=== PATIENT | male | born 1945 | race Two or more races ===

== ENCOUNTER → 2017-10-24 | Outpatient (CLI) | payer MEDICARE, BC | END | disposition home or self-care (01) | LOC: LABWHC1 14:31 | PROVIDERS: ATTEND Otolaryngology | DX: K11.9 Disease of salivary gland, unspecified (principal) | CPT/HCPCS: 36415; 82565 ==

== ENCOUNTER → 2017-10-25 | Outpatient (CLI) | payer MEDICARE, BC ==
--- NOTE | 2017-10-26 09:16 | MR ---
Neck MRI with and without contrast HISTORY: Parotid mass Multiplanar multisequence and postcontrast images obtained through the neck following 9 cc Gadavist I V Correlation to ultrasound biopsy 09/05/2017 Within the left parotid gland at the site of the patient's palpable abnormality there is a cystic-tea earing focus on T2-weighted sequences measuring approximately 13 mm x 11 mm x 17 mm which shows a mul tilocular appearance. There is close proximity to overlying vein. Some local mass effect is suspected on vascular structure. No evident mass within the submandibular glands or right parotid gland. Some enhancement suspected following contrast administration. The orbits show an unremarkable appearance. There is no evident adenopathy. Normal vascular flow void s are present. Degenerative disc changes noted incidentally in the spine. Mucosal disease noted withi n the maxillary sinuses. IMPRESSION: Left parotid mass as described, consider oncocytoma, Warthin tumor, pleomorphic adenoma, follow-up.
== END | disposition home or self-care (01) ==
LOC: RADMRIMAIN 08:45
PROVIDERS: ATTEND Otolaryngology
DX: K11.8 Other diseases of salivary glands (principal)
CPT/HCPCS: 70543; A9581

== ENCOUNTER 2019-05-21 14:19 | Emergency (ER) | payer MEDICARE, BC ==
[2019-05-21 14:41] VITALS: BP 162/93; PULSE 69; RESP 18; TEMP 97.8
--- NOTE | 2019-05-21 15:52 | XR ---
EXAMINATION TYPE: XR KUB DATE OF EXAM: 05/21/2019 COMPARISON: NONE HISTORY: Pain TECHNIQUE: Single supine KUB image of the abdomen is obtained FINDINGS: Small bowel demonstrates no evidence for dilatation or air fluid levels. Gas and fecal material is seen in non-distended colon. No convincing evidence for pneumoperitoneum. There is evidence of cholelithiasis. Vascular calcifications noted. Multiple phleboliths pelvic basin . The lung bases are clear. The osseous structures are intact. IMPRESSION: 1. Overall nonobstructive bowel gas pattern.
[2019-05-21 15:55] LABS: Basophils % (A) 0 %; Eosinophils # (A) 0.1 k/uL (0-0.7); Eosinophils % (A) 1 %; HCT 43.1 % (39.0-53.0); HGB 14.6 gm/dL (13.0-17.5); Lymphocytes # (A) 1.3 k/uL (1.0-4.8); Lymphocytes % (A) 9 %; MCH 30.2 pg (25.0-35.0); MCHC 33.8 g/dL (31.0-37.0); MCV 89.2 fL (80.0-100.0); Mean Platelet Volume 7.2; Monocytes # (A) 0.9 k/uL (0-1.0); Monocytes % (A) 6 %; Neutrophils # (A) 11.4 k/uL (1.3-7.7); Neutrophils % (A) 82 %; Platelet Count 208 k/uL (150-450); RBC 4.83 m/uL (4.30-5.90); RDW 13.4 % (11.5-15.5); WBC 13.8 k/uL (3.8-10.6)
[2019-05-21 16:05] LABS: Appearance,Urine Clear (Clear); Bilirubin,Urine Negative (Negative); Blood,Urine Moderate (Negative); Color,Urine Yellow; Glucose,Urine (UA) Negative (Negative); Ketones,Urine Trace (Negative); Leukocyte Esterase,Urine Negative (Negative); Mucus,Urine Rare /hpf; Nitrite,Urine Negative (Negative); Protein,Urine Trace (Negative); RBC,Urine 49 /hpf (0-5); Specific Gravity,Urine 1.021 (1.001-1.035); Urobilinogen,Urine <2.0 mg/dL (<2.0); WBC,Urine 1 /hpf (0-5)
--- NOTE | 2019-05-21 16:11 | ED ---
Back Pain HPI - General Chief Complaint: Back Pain/Injury Stated Complaint: Lower Back Pain Time Seen by Provider: 05/21/19 14:45 Source: patient Limitations: no limitations - History of Present Illness Initial Comments: Patient is 73-year-old male with history of cholelithiasis and nephrolithiasis is presenting to the emergency Department with chief complaint of abdominal back pain. Patient states that he developed right-sided abdominal pain this morning after he woke up and it has since traveled to the right flank and right lumbar paraspinal region. Patient reports nausea but no vomiting or diarrhea. Patient reports the pain is not related to oral fluid intake. Patient denies any fevers, night sweats or chills. Patient reports the pain is a 4 and constant. Patient states the pain is not exacerbated with any specific anatomical positions or with palpation. Patient denies taking any medication to alleviate the symptoms. Patient denies abdominal bloating. Patient denies hematuria, hematochezia or melena. Patient denies penile discharge, scrotal swelling or tenderness. - Related Data Home Medications Medication Instructions Recorded Confirmed Aspirin [Adult Low Dose Aspirin EC] 81 mg PO DAILY 08/28/17 09/05/17 Simvastatin 40 mg PO HS 08/28/17 09/05/17 metFORMIN HCL [Glucophage] 850 mg PO BID 08/28/17 09/05/17 sitaGLIPtin [Januvia] 100 mg PO DAILY 08/28/17 09/05/17 Previous Rx's Medication Instructions Recorded Tamsulosin [Flomax] 0.4 mg PO DAILY #7 cap 05/21/19 Allergies Allergy/AdvReac Type Severity Reaction Status Date / Time No Known Allergies Allergy Verified 09/05/17 09:23 Review of Systems ROS Statement: Those systems with pertinent positive or pertinent negative responses have been documented in the HPI. ROS Other: All systems not noted in ROS Statement are negative. Past Medical History Past Medical History: Diabetes Mellitus, Hyperlipidemia History of Any Multi-Drug Resistant Organisms: None Reported Past Surgical History: Hernia Repair Additional Past Surgical History / Comment(s): 2 times hernia repair, vasectomy Past Anesthesia/Blood Transfusion Reactions: No Reported Reaction Past Psychological History: No Psychological Hx Reported Smoking Status: Former smoker Past Alcohol Use History: None Reported Past Drug Use History: None Reported - Past Family History Mother Family Medical History: Diabetes Mellitus Additional Family Medical History / Comment(s): Type 1 General Exam Limitations: no limitations General appearance: alert, in no apparent distress Head exam: Present: atraumatic, normocephalic, normal inspection Eye exam: Present: normal appearance, PERRL, EOMI Pupils: Present: normal accommodation ENT exam: Present: normal exam, mucous membranes moist, normal external ear exam Neck exam: Present: normal inspection, full ROM Respiratory exam: Present: normal lung sounds bilaterally Cardiovascular Exam: Present: regular rate, normal rhythm, normal heart sounds GI/Abdominal exam: Present: soft, normal bowel sounds, other (Negative Rovsing, negative psoas, negative obturator, negative McBurney point tenderness, negative Meraz sign.). Absent: tenderness, guarding, mass Extremities exam: Present: normal inspection, full ROM, other (+2 dorsalis pedis and posterior tibialis bilaterally.) Back exam: Present: normal inspection, full ROM, CVA tenderness (R) (Mild) Neurological exam: Present: alert, oriented X3 Psychiatric exam: Present: normal affect, normal mood Skin exam: Present: warm, intact, normal color Course Vital Signs 05/21/19 14:37 Temperature 97.8 F Pulse Rate 69 Respiratory 18 Rate Blood Pressure 162/93 O2 Sat by Pulse 98 Oximetry Medical Decision Making - Medical Decision Making Patient is 73-year-old male presenting to emergency Department with a chief complaint of abdominal pain. Patient reports the pain started near the right side of the abdomen and has since progressed to the right flank region. UA is indicative of hematuria. CBC is showing mild leukocytosis. CMP does not indicate elevation in liver enzymes. CT of abdomen and pelvis is indicative of small obstructing calculus in the distal right ureter with the right side hydronephrosis and hydroureter. Arthrosclerotic vascular disease also noted. Cholelithiasis noted with liver lesions consistent with hemangiomata. Patient will be given a Tylenol 3 starter pack and Flomax. Patient vised alternate between Tylenol and ibuprofen for pain control. Patient asked to follow-up with urology. Strict return parameters were thoroughly discussed the patient is understanding and agreeable. Case discussed with physician. - Lab Data Result diagrams: 05/21/19 15:40 05/21/19 15:40 Lab Results 05/21/19 05/21/19 05/21/19 Range/Units 15:40 15:40 15:40 WBC 13.8 H (3.8-10.6) k/uL RBC 4.83 (4.30-5.90) m/uL Hgb 14.6 (13.0-17.5) gm/dL Hct 43.1 (39.0-53.0) % MCV 89.2 (80.0-100.0) fL MCH 30.2 (25.0-35.0) pg MCHC 33.8 (31.0-37.0) g/dL RDW 13.4 (11.5-15.5) % Plt Count 208 (150-450) k/uL Neutrophils % 82 % Lymphocytes % 9 % Monocytes % 6 % Eosinophils % 1 % Basophils % 0 % Neutrophils # 11.4 H (1.3-7.7) k/uL Lymphocytes # 1.3 (1.0-4.8) k/uL Monocytes # 0.9 (0-1.0) k/uL Eosinophils # 0.1 (0-0.7) k/uL Basophils # 0.0 (0-0.2) k/uL Sodium 138 (137-145) mmol/L Potassium 5.2 H (3.5-5.1) mmol/L Chloride 101 (98-107) mmol/L Carbon Dioxide 26 (22-30) mmol/L Anion Gap 11 mmol/L BUN 24 H (9-20) mg/dL Creatinine 1.38 H (0.66-1.25) mg/dL Est GFR (CKD-EPI)AfAm 58 (>60 ml/min/1.73 sqM) Est GFR (CKD-EPI)NonAf 50 (>60 ml/min/1.73 sqM) Glucose 138 H (74-99) mg/dL Calcium 10.3 H (8.4-10.2) mg/dL Total Bilirubin 0.7 (0.2-1.3) mg/dL AST 23 (17-59) U/L ALT 28 (21-72) U/L Alkaline Phosphatase 75 (38-126) U/L Total Protein 7.5 (6.3-8.2) g/dL Albumin 4.5 (3.5-5.0) g/dL Amylase 58 (30-110) U/L Lipase 83 (23-300) U/L Urine Color Yellow Urine Appearance Clear (Clear) Urine pH 5.0 (5.0-8.0) Ur Specific [place] 1.021 (1.001-1.035) Urine Protein Trace H (Negative) Urine Glucose (UA) Negative (Negative) Urine Ketones Trace H (Negative) Urine Blood Moderate H (Negative) Urine Nitrite Negative (Negative) Urine Bilirubin Negative (Negative) Urine Urobilinogen <2.0 (<2.0) mg/dL Ur Leukocyte Esterase Negative (Negative) Urine RBC 49 H (0-5) /hpf Urine WBC 1 (0-5) /hpf Urine Mucus Rare H (None) /hpf Disposition Clinical Impression: Kidney stone on right side Disposition: HOME SELF-CARE Condition: Stable Instructions (If sedation given, give patient instructions): Kidney Stones (ED) Additional Instructions: Alternate between Tylenol and ibuprofen for pain control. Please see prescribe medication as directed. Please follow up with urology. Patient to emergency department if symptoms worsen. Is patient prescribed a controlled substance at d/c from ED?: No Referrals: Dick Grajeda MD [Primary Care Provider] - 1-2 days Pal Dawkins MD [STAFF PHYSICIAN] - 1-2 days Time of Disposition: 17:38
[2019-05-21 16:36] LABS: Albumin 4.5 g/dL (3.5-5.0); Calcium 10.3 mg/dL (8.4-10.2); Potassium 5.2 mmol/L (3.5-5.1); Total Bilirubin 0.7 mg/dL (0.2-1.3); Total Protein 7.5 g/dL (6.3-8.2)
--- NOTE | 2019-05-21 17:19 | CT ---
EXAMINATION TYPE: CT abdomen pelvis w con DATE OF EXAM: 05/21/2019 COMPARISON: None HISTORY: Right sided flank pain with nausea CT DLP: 1055.1 mGycm Automated exposure control for dose reduction was used. TECHNIQUE: Helical acquisition of images was performed from the lung bases through the pelvis. CONTRAST: Performed without Oral Contrast and with IV Contrast, patient injected with 100 mL of Isovue 300. FINDINGS: There is subsegmental atelectasis at the posterior lung bases. Heart size is normal. There is no robe cardial effusion. There is no pleural effusion. There is 3.2 cm irregular low-density mass with nodular peripheral enhancement in the lateral right l obe of the liver. There is a similar 3.4 x 5.7 cm lesion in the posterior superior right lobe of the liver. These are consistent with hemangiomata. The bile ducts are not dilated. There are multiple cristi cified gallstones. Spleen appears normal. There is no pancreatic mass. There is atherosclerotic vascu lar calcification. There is oval-shaped 13 cm low-density left adrenal mass. Kidneys have normal size. There is right-si ded hydronephrosis and hydroureter. There is 5 mm calculus at the right ureterovesical junction. Ther e is delayed right-sided pyelogram. Left kidney shows no sign of mass or obstruction. There is no ret roperitoneal adenopathy. There is no evidence of thickened appendix. There is a few millimeter anterior subluxation of L4 in r elation L5. This is a mild degenerative spondylolisthesis. There is no compression fracture. There is hypertrophic degenerative disc changes at L3-4 and L5-S1. The posterior elements are intact. There i s some osteoarthritis in the left hip joint with acetabular mild spurring and degenerative cyst forma tion. There is no mesenteric edema. There is no evidence of a bowel obstruction. I see no intestinal wall t hickening. There are scattered sigmoid diverticula. IMPRESSION: SMALL OBSTRUCTING CALCULUS IN THE DISTAL RIGHT URETER WITH RIGHT SIDE HYDRONEPHROSIS AND HYDROURETER. ATHEROSCLEROTIC VASCULAR DISEASE. CHOLELITHIASIS. LIVER LESIONS CONSISTENT WITH HEMANGIOMATA.
[2019-05-21] MEDS ORDERED: ACET/COD 300 MG/30 MG STARTER PACK 6 TAB BTL PO STA (17:44)
== END 2019-05-21 17:48 | disposition home or self-care (01) ==
LOC: EC 14:19
DX: N13.2 Hydronephrosis with renal and ureteral calculous obstruction (principal); K80.20 Calculus of gallbladder without cholecystitis without obstruction; I70.90 Unspecified atherosclerosis; D72.829 Elevated white blood cell count, unspecified; K76.9 Liver disease, unspecified; E11.9 Type 2 diabetes mellitus without complications; E78.5 Hyperlipidemia, unspecified; Z79.82 Long term (current) use of aspirin; Z79.84 Long term (current) use of oral hypoglycemic drugs; Z79.899 Other long term (current) drug therapy; Z87.891 Personal history of nicotine dependence; Z98.890 Other specified postprocedural states
CPT/HCPCS: 36415; 80053; 82150; 83690; 85025; 81001; 74018; 74177; 99284; Q9967

== ENCOUNTER → 2019-06-06 | Outpatient (CLI) | payer MEDICARE, BC ==
--- NOTE | 2019-06-09 08:59 | CT ---
EXAMINATION TYPE: CT abdomen wo/w con, adrenal mass protocol DATE OF EXAM: 06/06/2019 COMPARISON: 05/21/2019 HISTORY: 73-year-old male recently passed stone. Evaluate for adrenal mass. Adrenal protocol. TECHNIQUE: Contiguous axial scanning of the abdomen and pelvis before and after administration of 80 ml Isovue 300 IV contrast. Long delayed images were also acquired. Coronal/sagittal reconstructions p erformed. CT DLP: 1184 mGycm Automated exposure control for dose reduction was used. FINDINGS: Heart normal size with trace anterior pericardial fluid. Coronary vessel calcifications are present. Strandy bibasilar dependent areas of atelectasis. No pleural effusion. Small hiatal hernia. Hemangiomas redemonstrated within the right liver lobe measuring 6.7 cm posteriorly and 3.4 cm anteri dell. There is peripheral nodular enhancement with fill-in on the delayed images. Portal venous system is patent. No biliary ductal dilatation. Multiple gallstones are present measuring up to 1.6 cm. No abnormal gallbladder distention. Right adrenal gland, left kidney, spleen, and pancreas appear within normal limits. Cortical defect along the posterior upper pole right kidney suggests sequela of prior vascular or inf ectious insult. Retroaortic left renal vein. Symmetric uptake and excretion of contrast from both kidneys. Resolution of the previous mild hydronephrosis on the right. Moderate atherosclerotic calcifications abdominal aorta and iliac arteries. Scattered nonenlarged mesenteric lymph nodes are present measuring up to 6 mm. Moderate stool burden. No pericolonic inflammatory change. No dilated small bowel, free fluid, or cookie e air. Redemonstrated 1.8 cm nodule of the left adrenal gland along the medial limb. Noncontrast attenuation: -7 Hounsfield units. Early contrast attenuation: 19 Hounsfield units Late contrast enhancement: 0 Hounsfield units. Bones: Facet arthropathy lower lumbar spine. Endplate spondylosis visualized lower thoracic spine. Gr jemima 1 anterolisthesis L4-L5 and advanced degenerative disc disease L5-S1. IMPRESSION: 1. DENSITY AND ENHANCEMENT CHARACTERISTICS OF THE 1.8 CM LEFT ADRENAL NODULE COMPATIBLE WITH A BENIGN , LIPID RICH ADRENAL ADENOMA. 2. SMALL HIATAL HERNIA, HEPATIC HEMANGIOMAS MEASURING UP TO 6.7 CM, CHOLELITHIASIS, AND DEGENERATIVE CHANGES IN THE LOWER LUMBAR SPINE MENTIONED ABOVE.
== END | disposition home or self-care (01) ==
LOC: RADCTMAIN 13:54
PROVIDERS: ATTEND Urology
DX: K44.9 Diaphragmatic hernia without obstruction or gangrene (principal); D18.03 Hemangioma of intra-abdominal structures; K80.20 Calculus of gallbladder without cholecystitis without obstruction; E27.9 Disorder of adrenal gland, unspecified; R19.00 Intra-abdominal and pelvic swelling, mass and lump, unspecified site
CPT/HCPCS: 82565; 84520; 74170; 36415; Q9967

== ENCOUNTER 2022-07-06 19:21 | Emergency (ER) | payer MEDICARE ==
[2022-07-06 19:58] VITALS: BP 155/103; PULSE 85; RESP 16; TEMP 98
--- NOTE | 2022-07-06 20:06 | ED ---
ENT HPI - General Chief complaint: ENT Stated complaint: Hearing aid issues Time Seen by Provider: 07/06/22 20:01 Source: patient, RN notes reviewed Mode of arrival: ambulatory Limitations: no limitations - History of Present Illness Initial comments: This is a 76-year-old male who presents to the emergency department after getting a hearing aid stuck in his right ear. States that this happened at home earlier today, and he is unable to get it out on his own. Denies any fevers, chills, sore throat, cough, dyspnea, chest pain, palpitations , abdominal pain, nausea, vomiting, diarrhea, back pain, or headaches. MD complaint: other (hearing aid stuck in right ear canal) Location: R ear - Related Data Home Medications Medication Instructions Recorded Confirmed Aspirin [Adult Low Dose Aspirin EC] 81 mg PO DAILY 08/28/17 09/05/17 Simvastatin 40 mg PO HS 08/28/17 09/05/17 metFORMIN HCL [Glucophage] 850 mg PO BID 08/28/17 09/05/17 sitaGLIPtin [Januvia] 100 mg PO DAILY 08/28/17 09/05/17 Previous Rx's Medication Instructions Recorded Tamsulosin [Flomax] 0.4 mg PO DAILY #7 cap 05/21/19 Allergies Allergy/AdvReac Type Severity Reaction Status Date / Time No Known Allergies Allergy Verified 09/05/17 09:23 Review of Systems ROS Statement: Those systems with pertinent positive or pertinent negative responses have been documented in the HPI. ROS Other: All systems not noted in ROS Statement are negative. Past Medical History Past Medical History: Diabetes Mellitus, Hyperlipidemia History of Any Multi-Drug Resistant Organisms: None Reported Past Surgical History: Hernia Repair Additional Past Surgical History / Comment(s): 2 times hernia repair, vasectomy Past Anesthesia/Blood Transfusion Reactions: No Reported Reaction Past Psychological History: No Psychological Hx Reported Past Alcohol Use History: None Reported Past Drug Use History: None Reported - Past Family History Mother Family Medical History: Diabetes Mellitus Additional Family Medical History / Comment(s): Type 1 General Exam Limitations: no limitations General appearance: alert, in no apparent distress Head exam: Present: atraumatic, normocephalic, normal inspection ENT exam: Present: other (Hearing aid lodged in right ear canal) Respiratory exam: Present: normal lung sounds bilaterally. Absent: respiratory distress, wheezes, rales, rhonchi, stridor Cardiovascular Exam: Present: regular rate, normal rhythm, normal heart sounds. Absent: systolic murmur, diastolic murmur, rubs, gallop, clicks Neurological exam: Present: alert, oriented X3, CN II-XII intact Psychiatric exam: Present: normal affect, normal mood Skin exam: Present: warm, dry, intact, normal color. Absent: rash Course Vital Signs 07/06/22 19:55 Temperature 98 F Pulse Rate 85 Respiratory 16 Rate Blood Pressure 155/103 O2 Sat by Pulse 98 Oximetry Procedures - Foreign Body Removal Ear Location: ear canal (R) Foreign Body Suspected: other (Hearing aid) Foreign Body Removed: yes Foreign Body Removal Technique: forceps Tympanic Membrane Intact: Yes Patient Tolerated Procedure: well Complications: none Medical Decision Making - Medical Decision Making This is a 76-year-old male who presents to the emergency department for a hearing aid stuck in his right ear. This was very easily visualized with an otoscope, and the hearing aid was removed using alligator forceps. Patient confirmed that the hearing aid was removed in its entirety and there were no residual pieces visualized in the ear canal with the otoscope. Return precautions reviewed in depth, the patient is instructed to return to the emergency department with any new, worsening, or concerning symptoms. Patient verbalized understanding. This case was discussed in detail with the attending ED physician. Presentation, findings, and treatment plan discussed in detail as well. Disposition Clinical Impression: Wears hearing aid in right ear Disposition: HOME SELF-CARE Instructions (If sedation given, give patient instructions): Ear Foreign Body (ED) Additional Instructions: Return to the emergency department with any new, worsening, or concerning symptoms. Is patient prescribed a controlled substance at d/c from ED?: No Referrals: Dick Grajeda MD [Primary Care Provider] - 1-2 days
== END 2022-07-06 20:23 | disposition home or self-care (01) ==
LOC: EC 19:21
DX: T16.1XXA Foreign body in right ear, initial encounter (principal); E11.9 Type 2 diabetes mellitus without complications; E78.5 Hyperlipidemia, unspecified; Z79.84 Long term (current) use of oral hypoglycemic drugs
CPT/HCPCS: 99282

== ENCOUNTER 2023-09-13 06:26 | Day surgery (SDC) | payer MEDICARE, BC ==
[2023-09-11 11:57] VITALS: BMI 27.3
[~2023-09-13 06:26] MED LIST: LIDOCAINE 1% (10MG/ML) FOR IV START INTRADERMA PRN
[2023-09-13] MEDS ORDERED: HYDROmorphone 0.5 MG/0.5 ML SYRINGE IVP PRN (07:00)
[2023-09-13] MEDS: LACTATED RINGERS 1,000 ML IV SCH ×2 (07:19→07:34)
[2023-09-13 07:22] LABS: Glucose,Whole Blood 148 mg/dL (70-110)
[2023-09-13 07:30] VITALS: TEMP 97.6
[2023-09-13] MEDS ORDERED: PROPOFOL 10 MG/ML 20 ML VIAL IV ONE (07:35)
[2023-09-13] MEDS ORDERED: LIDOCAINE 1% INJ 10MG/ML (20 ML MDV) ONE (07:35)
--- NOTE | 2023-09-13 07:39 | P.GSHP ---
History of Present Illness H&P Date: 09/13/23 Chief Complaint: Positive colon guard test, screening colonoscopy This a 77-year-old male who underwent recent: Testing. This test was positive. He presents today for screening colonoscopy. Past Medical History Past Medical History: Diabetes Mellitus, Hyperlipidemia Additional Past Medical History / Comment(s): + COLOGARD History of Any Multi-Drug Resistant Organisms: None Reported Past Surgical History: Hernia Repair Additional Past Surgical History / Comment(s): 2 times hernia repair, vasectomy, COLONOSCOPY, LT NECK LYMPH NODE REMOVED, Past Anesthesia/Blood Transfusion Reactions: No Reported Reaction Past Psychological History: No Psychological Hx Reported Smoking Status: Former smoker Past Alcohol Use History: None Reported Additional Past Alcohol Use History / Comment(s): Quit 50 years ago Past Drug Use History: None Reported - Past Family History Mother Family Medical History: Diabetes Mellitus Additional Family Medical History / Comment(s): Type 1 Medications and Allergies Home Medications Medication Instructions Recorded Confirmed Type Simvastatin 40 mg PO HS 08/28/17 09/11/23 History metFORMIN HCL [Glucophage] 850 mg PO BID 08/28/17 09/11/23 History sitaGLIPtin [Januvia] 100 mg PO DAILY 08/28/17 09/11/23 History lisinopriL [Zestril] 20 mg PO DAILY 09/11/23 09/11/23 History Allergies Allergy/AdvReac Type Severity Reaction Status Date / Time No Known Allergies Allergy Verified 09/11/23 11:45 Surgical - Exam Vital Signs Temp Pulse Resp BP Pulse Ox 97.6 F 82 18 131/92 96 09/13/23 07:06 09/13/23 07:06 09/13/23 07:06 09/13/23 07:06 09/13/23 07:06 - General well developed, well nourished, no distress - Eyes PERRL - ENT normal pinna, normal nares - Neck no masses - Respiratory normal expansion - Cardiovascular Rhythm: regular - Abdomen Abdomen: soft, non tender Results - Labs Abnormal Lab Results - Last 24 Hours (Table) 09/13/23 Range/Units 07:13 POC Glucose (mg/dL) 148 H (70-110) mg/dL Assessment and Plan Plan: Positive colon guard test. We'll perform screening colonoscopy.
--- NOTE | 2023-09-13 07:58 | P.OP ---
Date of Procedure: 09/13/23 Preoperative Diagnosis: Screening colonoscopy Postoperative Diagnosis: Normal colonoscopy Procedure(s) Performed: Colonoscopy Anesthesia: SCOTT Surgeon: Jareth Ham Pathology: none sent Condition: stable Disposition: PACU Description of Procedure: PROCEDURE: The patient was placed on the endoscopy table in the lateral position. Digital rectal examination was performed which revealed no abnormalities. The prostate was symmetrical without nodules. Flexible colonoscope was then placed in the patient's anus and passed throughout the entire colon. The ileocecal valve was visualized. The cecum, ascending, transverse, descending and sigmoid colon were normal. The rectum was normal as well. There were no masses, polyps or diverticula noted in the entire colon. SUMMARY OF FINDINGS: Normal colonoscopy.
[2023-09-13 08:21] VITALS: BP 144/90; PULSE 79; RESP 16
== END 2023-09-13 08:46 | disposition home or self-care (01) ==
LOC: ORWHC2ENDO 06:26
PROVIDERS: ATTEND Surgery
DX: Z12.11 Encounter for screening for malignant neoplasm of colon (principal); I10 Essential (primary) hypertension; E11.9 Type 2 diabetes mellitus without complications; E78.5 Hyperlipidemia, unspecified; F17.200 Nicotine dependence, unspecified, uncomplicated; Z79.84 Long term (current) use of oral hypoglycemic drugs; Z79.899 Other long term (current) drug therapy; Z83.3 Family history of diabetes mellitus
CPT/HCPCS: J2001; J2704; G0121; 45378

== ENCOUNTER → 2023-10-03 | Outpatient (CLI) | payer MEDICARE, BC ==
--- NOTE | 2023-10-04 21:51 | US ---
EXAMINATION TYPE: US kidneys/renal and bladder DATE OF EXAM: 10/03/2023 COMPARISON: NONE CLINICAL INDICATION: Male, 77 years old with history of R94.4 ABNORMAL RESULTS OF KIDNEY FUNCTION; AB N Labs EXAM MEASUREMENTS: Right Kidney: 9.5x5.6x6.6 cm Left Kidney: 11.1x5.4x6.7 cm Right Kidney: small anechoic area: 1.0x1.0x1.1cm ?cyst vs. prominent pyramid vs other? Consider small peripelvic cyst within the differential. Left Kidney: No hydronephrosis or masses seen Bladder: wnl Bilateral Jets seen: Yes There is no evidence for hydronephrosis at this point in time. No nephrolithiasis is seen. The urin sydney bladder is anechoic. Bilateral ureteral jets are seen. Urinary bladder is sonolucent. IMPRESSION: 1 probable small cyst superior pole right kidney
== END | disposition home or self-care (01) ==
LOC: RADUSWWP 12:43
PROVIDERS: ATTEND Family Medicine
DX: R94.4 Abnormal results of kidney function studies (principal)
CPT/HCPCS: 76770

== ENCOUNTER 2023-11-04 08:26 | Emergency (ER) | payer MEDICARE, BC ==
[2023-11-04] MEDS ORDERED: DEXAMETHASONE SOD PHOSPHATE 10 MG/ML 1 ML VIAL IM STA (08:40)
[2023-11-04] MEDS ORDERED: LIDOCAINE VISCOUS 2% 15 ML CUP PO ONE (08:40)
[2023-11-04 08:49] VITALS: RESP 18
--- NOTE | 2023-11-04 08:53 | ED ---
URI HPI - General Chief Complaint: Upper Respiratory Infection Stated Complaint: throat pain,congestion Time Seen by Provider: 11/04/23 08:34 Source: patient, RN notes reviewed Mode of arrival: ambulatory Limitations: no limitations - History of Present Illness Initial Comments: This is a 77 year old male who presents to the emergency department for coug amador, congestion, and a sore throat. States that the symptoms started about 4 days ago. He has not been able to sleep due to the congestion and sinus pain. Also states that he is having difficulty swallowing due to the sore throat. He is using nogi-yge-ycbdway decongestants and lozenges without much relief in symptoms. He did use Afrin nasal spray this morning which was somewhat helpful. Denies any chest pain or shortness of breath. MD Complaint: cough, sore throat, nasal congestion - Related Data Home Medications Medication Instructions Recorded Confirmed Simvastatin 40 mg PO HS 08/28/17 09/11/23 metFORMIN HCL [Glucophage] 850 mg PO BID 08/28/17 09/11/23 sitaGLIPtin [Januvia] 100 mg PO DAILY 08/28/17 09/11/23 lisinopriL [Zestril] 20 mg PO DAILY 09/11/23 09/11/23 Previous Rx's Medication Instructions Recorded Benzonatate [Tessalon Perle] 200 mg PO TID PRN #30 capsule 11/04/23 Molnupiravir [Lagevrio (Eua)] 800 mg PO BID 5 Days #40 cap 11/04/23 Allergies Allergy/AdvReac Type Severity Reaction Status Date / Time No Known Allergies Allergy Verified 11/04/23 08:33 Review of Systems ROS Statement: Those systems with pertinent positive or pertinent negative responses have been documented in the HPI. ROS Other: All systems not noted in ROS Statement are negative. Past Medical History Past Medical History: Diabetes Mellitus, Hyperlipidemia Additional Past Medical History / Comment(s): + COLOGARD History of Any Multi-Drug Resistant Organisms: None Reported Past Surgical History: Hernia Repair Additional Past Surgical History / Comment(s): 2 times hernia repair, vasectomy, COLONOSCOPY, LT NECK LYMPH NODE REMOVED, Past Anesthesia/Blood Transfusion Reactions: No Reported Reaction Past Psychological History: No Psychological Hx Reported Smoking Status: Former smoker Past Alcohol Use History: None Reported Past Drug Use History: None Reported - Past Family History Mother Family Medical History: Diabetes Mellitus Additional Family Medical History / Comment(s): Type 1 General Exam Limitations: no limitations General appearance: alert, in no apparent distress Head exam: Present: atraumatic, normocephalic, normal inspection ENT exam: Present: normal oropharynx, mucous membranes moist, TM's normal bilaterally, normal external ear exam Respiratory exam: Present: normal lung sounds bilaterally. Absent: respiratory distress, wheezes, rales, rhonchi, stridor Cardiovascular Exam: Present: regular rate, normal rhythm, normal heart sounds. Absent: systolic murmur, diastolic murmur, rubs, gallop, clicks Neurological exam: Present: alert, oriented X3, CN II-XII intact Psychiatric exam: Present: normal affect, normal mood Skin exam: Present: warm, dry, intact, normal color. Absent: rash Course Vital Signs 11/04/23 11/04/23 11/04/23 08:31 09:14 10:34 Temperature 99 F 100.6 F H 99.4 F Pulse Rate 110 H 89 76 Respiratory 18 18 Rate Blood Pressure 127/79 126/90 O2 Sat by Pulse 98 95 97 Oximetry Medical Decision Making - Medical Decision Making This is a 77 year old male who presents to the emergency department for coughing and congestion. Was pt. sent in by a medical professional or institution? @ -No Did you speak to anyone other than the patient for history? @ -No Did you review nursing and triage notes? @ -Yes, and I agree, it is accurate with regards to the patient's symptoms. Were old charts reviewed? @ -No Differential Diagnosis? @ -Differential Cough: Influenza, Covid, RSV, croup, allergic rhinitis, GERD, pneumonia, bronchitis, COPD, viral pharyngitis, streptococcal pharyngitis, this is not meant to be an all-inclusive list. EKG interpreted by me (3pts min.)? @ -Not obtained X-rays interpreted by me (1pt min.)? @ -Chest x-ray obtained, my interpretation identifies no localized consolidations or infiltrates. CT interpreted by me (1pt min.)? @ -Not obtained U/S interpreted by me (1pt. min.)? @ -Not obtained What testing was considered but not performed? (CT, X-rays, U/S, labs)? Why? @ -None What meds were considered but not given? Why? @ -None Did you discuss the management of the patient with other professionals? @ -No Did you reconcile home meds? @ -No Was smoking cessation discussed for >3mins.? @ -No Was critical care preformed (if so, how long)? @ -No Were there social determinants of health that impacted care today? How? (Homelessness, low income, unemployed, alcoholism, drug addiction, transportation, low edu. Level, literacy, decrease access to med. care, intermediate, rehab)? @ -No Was there de-escalation of care discussed even if they declined? (Discuss DNR or withdrawal of care, Hospice)? @ -No What co-morbidities impacted this encounter? (DM, HTN, Smoking, COPD, CAD, Cancer, CVA, Hep., AIDS, mental health diagnosis, sleep apnea, morbid obesity)? @ -DM Was patient admitted / discharged? @ -Discharged. Patient positive for COVID-19. Influena and RSV testing are negative. Chest x-ray reveals no acute process. Discussed with the patient the option of antiviral treatment and the risk of rebound symptoms, and he requested to proceed. Rx for Molnupiravir provided with dosing instructions reviewed. This was chosen over Paxlovid due to hx of decreased renal function. Rx for Tessalon Perles provided as well with dosing instructions reviewed. He was reminded to quarantine and also advised to get plenty of rest and drink plenty of fluids. Patient discharged home in stable condition. Undiagnosed new problem with uncertain prognosis? @ -None Drug Therapy requiring intensive monitoring for toxicity (Heparin, Nitro, Insu daphne, Cardizem)? @ -None Were any procedures done? @ -None Diagnosis/symptom? @ -COVID-19 Acute, or Chronic, or Acute on Chronic? @ -Acute Uncomplicated (without systemic symptoms) or Complicated (systemic symptoms)? @ -Uncomplicated Side effects of treatment? @ -None Exacerbation, Progression, or Severe Exacerbation] @ -Not applicable Poses a threat to life or bodily function? @ -No Return precautions reviewed in depth, the patient is instructed to return to the emergency department with any new, worsening, or concerning symptoms. Patient verbalized understanding. This case was discussed in detail with the attending ED physician, Dr. Wyatt. Presentation, findings, and treatment plan discussed in detail as well. - Lab Data Lab Results 11/04/23 Range/Units 08:45 Influenza Type A (PCR) Not Detected (Not Detectd) Influenza Type B (PCR) Not Detected (Not Detectd) RSV (PCR) Not Detected (Not Detectd) SARS-CoV-2 (PCR) Detected A (Not Detectd) - Radiology Data Radiology results: report reviewed, image reviewed Disposition Clinical Impression: COVID-19 Disposition: HOME SELF-CARE Instructions (If sedation given, give patient instructions): Coronavirus Disease 2019 (COVID-19), COVID-19 (Coronavirus Disease 2019) (ED) Additional Instructions: Return to the emergency department with any new, worsening, or concerning symptoms. Take the molnupiravir as prescribed for 5 days. You can take the Tessalon Perles up to three times daily for coughing. Take Tylenol for pain relief and any additional fevers. Use the Afrin nasal spray as needed, however avoid using this for more than 3 days due to the risk of dependence. Make sure you get plenty of rest and drink plenty of fluids. Prescriptions: Molnupiravir [Lagevrio (Eua)] 800 mg PO BID 5 Days #40 cap Benzonatate [Tessalon Perle] 200 mg PO TID PRN #30 capsule PRN Reason: Cough Is patient prescribed a controlled substance at d/c from ED?: No Referrals: Dick Grajeda MD [Primary Care Provider] - 1-2 days Time of Disposition: 10:13
[2023-11-04] MEDS ORDERED: ACETAMINOPHEN TAB 500 MG TAB PO STA (09:17)
--- NOTE | 2023-11-04 09:22 | XR ---
EXAMINATION TYPE: XR chest 2V DATE OF EXAM: 11/04/2023 COMPARISON: NONE HISTORY: Shortness of breath TECHNIQUE: Frontal and lateral views of the chest are obtained. FINDINGS: Scattered senescent parenchymal changes noted. Hyperinflation compatible with COPD. No evidence for infiltrate. No evidence for atelectasis. Heart size is stable. Mediastinal structures are stable and grossly unremarkable. No evidence for hilar prominence. Degenerative changes dorsal spine. IMPRESSION: 1. No evidence for acute pulmonary disease.
[2023-11-04 10:37] VITALS: BP 126/90; PULSE 76; TEMP 99.4
== END 2023-11-04 10:35 | disposition home or self-care (01) ==
LOC: EC 08:26
DX: U07.1 COVID-19 (principal); E11.9 Type 2 diabetes mellitus without complications; E78.5 Hyperlipidemia, unspecified; Z87.891 Personal history of nicotine dependence; Z79.84 Long term (current) use of oral hypoglycemic drugs; Z79.899 Other long term (current) drug therapy
CPT/HCPCS: 87636; 71046; 99283; 96372; J1100

== ENCOUNTER → 2024-02-04 | Outpatient (CLI) | payer MEDICARE, BC ==
[2024-02-04 17:28] LABS: Basophils # (A) 0.04 X 10*3/uL (0.00-0.10); Basophils % (A) 0.5 %; Eosinophils # (A) 0.09 X 10*3/uL (0.04-0.35); Eosinophils % (A) 1.2 %; HCT 41.5 % (39.6-50.0); HGB 13.6 g/dL (13.0-17.0); Lymphocytes # (A) 1.22 X 10*3/uL (0.90-5.00); Lymphocytes % (A) 16.6 %; MCH 30.3 pg (27.0-32.0); MCHC 32.8 g/dL (32.0-37.0); MCV 92.4 FL (80.0-97.0); Mean Platelet Volume 11.6 FL (9.5-12.2); Monocytes # (A) 0.78 X 10*3/uL (0.20-1.00); Monocytes % (A) 10.6 %; NRBC Per 100 WBC 0 X 10*3/uL (0.00-0.01); Neutrophils # (A) 5.21 X 10*3/uL (1.80-7.70); Neutrophils % (A) 70.7 %; Platelet Count 220 X 10*3/uL (140-440); RBC 4.49 X 10*6/uL (4.40-5.60); RDW 13.4 % (11.5-14.5); WBC 7.37 X 10*3/uL (4.50-10.00)
[2024-02-04 17:43] LABS: Albumin 4.4 g/dL (3.8-4.9); BUN/Creat Ratio 14.62 Ratio (12.00-20.00); Carbon Dioxide 24.7 mmol/L (21.6-31.8); Chloride 102 mmol/L (96-109); Glucose 100 mg/dL (70-110); Iron 67 UG/DL (65-175); Magnesium 1.8 mg/dL (1.5-2.4); Phosphorus 3.3 mg/dL (2.4-5.1); Potassium 4.9 mmol/L (3.5-5.5); Sodium 139 mmol/L (135-145); Total Iron Binding Capacity 335 UG/DL (228-460); Uric Acid 6.2 mg/dL (3.7-8.7)
[2024-02-04 19:43] LABS: Appearance,Urine Clear (Clear); Bilirubin,Urine Negative (Negative); Blood,Urine Negative (Negative); Color,Urine Yellow (Yellow); Ketones,Urine Negative (Negative); Nitrite,Urine Negative (Negative); PH, Urine 5.5; Specific Gravity,Urine 1.016 (1.001-1.030)
[2024-02-04 19:47] LABS: Bacteria,Urine None Seen (None Seen)
[2024-02-05 01:08] LABS: Microalbumin Creatinine Ratio <10 mg/g Cr (0-30)
== END | disposition home or self-care (01) ==
LOC: LABWHC1 10:27
PROVIDERS: ATTEND Internal Medicine Nephrology
DX: N25.81 Secondary hyperparathyroidism of renal origin (principal); N18.31 Chronic kidney disease, stage 3a; D63.1 Anemia in chronic kidney disease; E55.9 Vitamin D deficiency, unspecified; N39.0 Urinary tract infection, site not specified; M10.9 Gout, unspecified; R80.9 Proteinuria, unspecified
CPT/HCPCS: 36415; 80048; 81001; 82040; 82043; 82306; 82570; 82728; 83540; 83550; 83735; 83970; 84100; 84550; 85025; 86334; 86335

== ENCOUNTER → 2024-08-07 | Outpatient (CLI) | payer MEDICARE, BC ==
[2024-08-07 11:46] LABS: Creatinine,Urine Random 107.9 mg/dL
[2024-08-07 15:19] LABS: ALT 12 U/L (10-49); AST 18 U/L (14-35); Albumin 4.3 g/dL (3.8-4.9); Albumin/Globulin Ratio 1.79 Ratio (1.60-3.17); Alkaline Phosphatase 84 U/L (41-126); BUN/Creat Ratio 18.33 Ratio (12.00-20.00); Calcium 9.6 mg/dL (8.7-10.3); Carbon Dioxide 27.9 mmol/L (21.6-31.8); Chloride 101 mmol/L (96-109); Globulin 2.4 g/dL (1.6-3.3); Glucose 99 mg/dL (70-110); Magnesium 1.9 mg/dL (1.5-2.4); Phosphorus 3.8 mg/dL (2.4-5.1); Potassium 4.6 mmol/L (3.5-5.5); Sodium 139 mmol/L (135-145); Total Bilirubin 0.5 mg/dL (0.3-1.2); Total Protein 6.7 g/dL (6.2-8.2)
[2024-08-07 15:37] LABS: HCT 39.8 % (39.6-50.0); HGB 13.2 g/dL (13.0-17.0); MCH 29.8 pg (27.0-32.0); MCHC 33.2 g/dL (32.0-37.0); MCV 89.8 FL (80.0-97.0); Mean Platelet Volume 10.9 FL (9.5-12.2); NRBC Per 100 WBC 0 X 10*3/uL (0.00-0.01); Platelet Count 200 X 10*3/uL (140-440); RBC 4.43 X 10*6/uL (4.40-5.60); RDW 13.5 % (11.5-14.5); WBC 8.07 X 10*3/uL (4.50-10.00)
[2024-08-07 16:03] LABS: Appearance,Urine Clear (Clear); Bilirubin,Urine Negative (Negative); Blood,Urine Negative (Negative); Color,Urine Yellow (Yellow); Ketones,Urine Negative (Negative); Nitrite,Urine Negative (Negative); PH, Urine 6.5; Specific Gravity,Urine 1.016 (1.001-1.030)
[2024-08-07 16:13] LABS: Bacteria,Urine None Seen (None Seen)
== END | disposition home or self-care (01) ==
LOC: LABWHC1 09:42
PROVIDERS: ATTEND Internal Medicine
DX: N18.31 Chronic kidney disease, stage 3a (principal); D64.9 Anemia, unspecified; N39.0 Urinary tract infection, site not specified; R80.9 Proteinuria, unspecified; E11.22 Type 2 diabetes mellitus with diabetic chronic kidney disease; I12.9 Hypertensive chronic kidney disease with stage 1 through stage 4 chronic kidney disease, or unspecified chronic kidney disease; N17.9 Acute kidney failure, unspecified; N28.1 Cyst of kidney, acquired; Z79.84 Long term (current) use of oral hypoglycemic drugs
CPT/HCPCS: 36415; 80053; 81001; 82570; 83735; 84100; 84156; 85027

== ENCOUNTER → 2025-02-05 | Outpatient (CLI) | payer MEDICARE, BC ==
[2025-02-05 16:37] LABS: Appearance,Urine Clear (Clear); Bilirubin,Urine Negative (Negative); Blood,Urine Negative (Negative); Color,Urine Yellow (Yellow); Ketones,Urine Negative (Negative); Nitrite,Urine Negative (Negative); PH, Urine 5.5; Specific Gravity,Urine 1.012 (1.001-1.030); Urobilinogen,Urine 0.2 E.U./DL
[2025-02-05 18:08] LABS: Microalbumin Creatinine Ratio <15 mg/g Cr (0-30); Urine Creatinine 80.8 mg/dL (39.0-259.0)
[2025-02-05 18:13] LABS: ALT 16 U/L (10-49); AST 23 U/L (14-35); Albumin 4.4 g/dL (3.8-4.9); Albumin/Globulin Ratio 1.83 Ratio (1.60-3.17); Alkaline Phosphatase 77 U/L (41-126); BUN/Creat Ratio 17.79 Ratio (12.00-20.00); Blood Urea Nitrogen 24.9 mg/dL (9.0-27.0); Calcium 9.4 mg/dL (8.7-10.3); Carbon Dioxide 23.4 mmol/L (21.6-31.8); Chloride 101 mmol/L (96-109); Globulin 2.4 g/dL (1.6-3.3); Glucose 93 mg/dL (70-110); Magnesium 1.9 mg/dL (1.5-2.4); Phosphorus 3.2 mg/dL (2.4-5.1); Sodium 135 mmol/L (135-145); Total Bilirubin 0.5 mg/dL (0.3-1.2); Total Protein 6.8 g/dL (6.2-8.2)
[2025-02-05 18:49] LABS: HCT 43.5 % (39.6-50.0); HGB 14.3 g/dL (13.0-17.0); MCHC 32.9 g/dL (32.0-37.0); MCV 91.4 FL (80.0-97.0); NRBC Per 100 WBC 0.02 X 10*3/uL (0.00-0.01); Platelet Count 210 X 10*3/uL (140-440); RBC 4.76 X 10*6/uL (4.40-5.60); RDW 12.9 % (11.5-14.5); WBC 8.32 X 10*3/uL (4.50-10.00)
== END | disposition home or self-care (01) ==
LOC: LABWHC1 10:40
PROVIDERS: ATTEND Internal Medicine Nephrology
DX: N18.31 Chronic kidney disease, stage 3a (principal); D63.1 Anemia in chronic kidney disease; N39.0 Urinary tract infection, site not specified; R80.9 Proteinuria, unspecified
CPT/HCPCS: 36415; 80053; 81003; 82043; 82570; 83735; 84100; 85027